=== PATIENT | male | born 1990 | race African-American/Black ===

== ENCOUNTER 2019-07-02 07:24 | Emergency (ER) | payer SELFPAY ==
--- NOTE | 2019-07-02 07:52 | ER Document Report ---
Entered by JONNY FARMER SCRIBE 07/02/19 0739 Acting as scribe for:LADY WARE MD ED GI/ - General Chief Complaint: Flank Pain Stated Complaint: GROIN PAIN Time Seen by Provider: 07/02/19 07:32 Mode of Arrival: Ambulatory Information source: Patient Notes: 28-year-old male who presents to the emergency department today with complaints of "groin pain" with associated penile discharge. Patient states he is sexually active although the last time he had sexual intercourse was reportedly 2 months ago. Patient describes his penile discharge as a yellow color with occasional blood. Patient also complains of dysuria. - Related Data Allergies/Adverse Reactions: No Known Allergies Allergy (Unverified 07/02/19 07:34) Past Medical History - General Information source: Patient - Social History Smoking Status: Current Every Day Smoker Cigarette use (# per day): Yes Frequency of alcohol use: None Drug Abuse: None Lives with: Family Family History: Reviewed & Not Pertinent Review of Systems - Review of Systems Constitutional: No symptoms reported EENT: No symptoms reported Cardiovascular: No symptoms reported Respiratory: No symptoms reported Gastrointestinal: No symptoms reported Genitourinary: See HPI, Dysuria, Pain Male Genitourinary: See HPI, Testicular pain, Penile discharge Musculoskeletal: No symptoms reported Skin: No symptoms reported Hematologic/Lymphatic: No symptoms reported Neurological/Psychological: No symptoms reported -: Yes All other systems reviewed and negative Physical Exam - Vital signs Vitals: Temp Pulse Resp BP 98.8 F 80 17 132/82 H 07/02/19 07:32 07/02/19 07:32 07/02/19 07:32 07/02/19 07:32 - Notes Notes: Physical Exam: General: Alert, appears uncomfortable. HEENT: Normocephalic. Atraumatic. PERRL. Extraocular movements intact. Oropharynx clear. Neck: Supple. Non-tender. Respiratory: No respiratory distress. Clear and equal breath sounds bilaterally. Cardiovascular: Regular rate and rhythm. Abdominal: Normal Inspection. Non-tender. No distension. Normal Bowel Sounds. Back: Non-tender. No deformity or step off. Male genitourinary: Yellowish colored discharge as well as dried blood on boxer briefs. Mild testicular tenderness with palpation. Shotty inguinal lymph nodes bilaterally. Extremities: Moves all four extremities. Upper extremities: Normal inspection. Normal ROM. Lower extremities: Normal inspection. No edema. Normal ROM. Neurological: Normal cognition. AAOx4. Normal speech. Psychological: Normal affect. Normal Mood. Skin: Warm. Dry. Normal color. Course - Re-evaluation Re-evalutation: 07/02/19 09:28 Patient found to have gonorrhea. Will provide ceftriaxone as well as 7 days of doxycycline. Discussed safe sex and also to notify all sexual partners of his chlamydia infection. Return precautions provided. Advised to be checked in 1 week to ensure clearance 07/02/19 10:02 - Vital Signs Vital signs: Temp Pulse Resp BP Pulse Ox 98.2 F 77 15 136/81 H 98 07/02/19 11:25 07/02/19 11:25 07/02/19 11:25 07/02/19 11:25 07/02/19 11:25 - Laboratory Result Diagrams: 07/02/19 07:42 07/02/19 09:10 Laboratory results interpreted by me: 07/02/19 07/02/19 07/02/19 07:30 07:30 07:42 RBC 4.27 L Hgb 13.3 L Urine Protein 100 H Urine Blood MODERATE H Urine Urobilinogen 4.0 H Ur Leukocyte Esterase LARGE H Urine Ascorbic Acid 40 H N.gonorrhoeae DNA (PCR) DETECTED H Discharge - Discharge Clinical Impression: Urethritis, Gonorrhea Condition: Good Disposition: HOME, SELF-CARE Instructions: Antibiotic Shot ([facility]), Doxycycline ([facility]), Gonorrhea ([facility]) Additional Instructions: Please notify all sexual partners of your sexual transmitted diseases they need to be treated as well. Prescriptions: Doxycycline Hyclate 100 mg PO BID #14 capsule I personally performed the services described in the documentation, reviewed and edited the documentation which was dictated to the scribe in my presence, and it accurately records my words and actions.
[2019-07-02 07:56] LABS: APPEARANCE,URINE CLOUDY; BILIRUBIN,URINE NEGATIVE (NEGATIVE); COLOR,URINE YELLOW; GLUCOSE, URINE NEGATIVE (NEGATIVE); KETONES,URINE NEGATIVE (NEGATIVE); LEUKOCYTE ESTERASE,URINE LARGE (NEGATIVE); NITRITE,URINE NEGATIVE (NEGATIVE); PROTEIN,URINE 100 mg/dL (NEGATIVE); URINE SPECIFIC GRAVITY 1.025
[2019-07-02 08:04] LABS: ABSOLUTE EOSINOPHILS # (AUTO) 0.1 10^3/uL (0.0-0.6); ABSOLUTE LYMPHOCYTES (AUTO) 1.1 10^3/uL (0.5-4.7); ABSOLUTE MONOCYTES (AUTO) 0.6 10^3/uL (0.1-1.4); ABSOLUTE NEUT (AUTO) 3.9 10^3/uL (1.7-8.2); BASOPHILS % (AUTO) 0.6 % (0-2); EOSINOPHILS % (AUTO) 1.1 % (0-6); HEMATOCRIT 39.9 % (37.9-51.0); HEMOGLOBIN 13.3 g/dL (13.5-17.0); LYMPHOCYTES % (AUTO) 18.6 % (13-45); MEAN CORPUSCULAR HEMOGLOBIN 31.1 pg (27.0-33.4); MEAN CORPUSCULAR HGB CONC 33.3 g/dL (32.0-36.0); MEAN CORPUSCULAR VOLUME 93 fl (80-97); MONOCYTES % (AUTO) 10.6 % (3-13); PLATELET COUNT 221 10^3/uL (150-450); RED BLOOD COUNT 4.27 10^6/uL (4.35-5.55); RED CELL DISTRIBUTION WIDTH 11.9 % (11.5-14.0); SEGMENTED NEUTROPHILS % (AUTO) 69.1 % (42-78); TOTAL CELLS COUNTED % (AUTO) 100 %; WHITE BLOOD COUNT 5.7 10^3/uL (4.0-10.5)
[2019-07-02 09:13] LABS: CHLAM PCR NOT DETECTED (NOT DETECT)
[2019-07-02] MEDS ORDERED: LIDOCAINE 1% INJ-PF (10 MG/ML) 30 ML SDV NEB ONE (09:27)
[2019-07-02] MEDS ORDERED: CEFTRIAXONE INJ 250 MG VIAL IM ONE (09:27)
[2019-07-02] MEDS ORDERED: DOXYCYCLINE HYCLATE INJ 100 MG VIAL IV ONE (09:27)
[2019-07-02 09:50] LABS: ALBUMIN 4.5 g/dL (3.5-5.0); ALKALINE PHOSPHATASE 79 U/L (38-126); ANION GAP 6 (5-19); ASPARTATE AMINO TRANSFERASE 23 U/L (17-59); BILIRUBIN,DIRECT 0.2 mg/dL (0.0-0.4); BILIRUBIN,TOTAL 0.8 mg/dL (0.2-1.3); BLOOD UREA NITROGEN 9 mg/dL (7-20); CALCIUM 9.4 mg/dL (8.4-10.2); CARBON DIOXIDE 29 mmol/L (22-30); CHLORIDE 105 mmol/L (98-107); GLUCOSE 99 mg/dL (75-110); POTASSIUM 4.2 mmol/L (3.6-5.0); TOTAL PROTEIN 7.2 g/dL (6.3-8.2)
--- NOTE | 2019-07-02 09:51 | RADIOLOGY REPORT (SQ) ---
EXAM DESCRIPTION: U/S SCROTUM W/DOPPLER COMPLETED DATE/TIME: 07/02/2019 9:31 am REASON FOR STUDY: test pain COMPARISON: None. TECHNIQUE: Static and realtime kang scale imaging of the scrotum and testes. Selected color Doppler and spectral images recorded to document blood flow. LIMITATIONS: None. FINDINGS: RIGHT: TESTICLE: Normal size. Normal echotexture. Normal blood flow. No mass. EPIDIDYMIS: Normal. HYDROCELE OR VARICOCELE: No. HERNIA OR EXTRA-TESTICULAR MASS: No. OTHER: No other significant finding. LEFT: TESTICLE: Normal size. Normal echotexture. Normal blood flow. No mass. EPIDIDYMIS: Normal. HYDROCELE OR VARICOCELE: No. HERNIA OR EXTRA-TESTICULAR MASS: No. OTHER: No other significant finding. IMPRESSION: Normal appearance of the bilateral testicles and scrotum. Doppler flow identified bilat erally. No ultrasound findings to explain pain. TECHNICAL DOCUMENTATION: JOB ID: [id number] [employer]- All Rights Reserved Reading location - IP/workstation name: [email or web address]
[2019-07-02 11:26] VITALS: BP 136/81
== END 2019-07-02 11:26 | disposition home or self-care (01) ==
LOC: ER 07:24
DX: N34.2 Other urethritis (principal); A54.9 Gonococcal infection, unspecified; R10.30 Lower abdominal pain, unspecified; R36.9 Urethral discharge, unspecified; R30.0 Dysuria; F17.210 Nicotine dependence, cigarettes, uncomplicated
CPT/HCPCS: 94640; 99284; 96372; 96365; 36415; 85025; 80053; 81001; 87491; 87591; 76870; 93976; J3490 ×2; J0696